=== PATIENT | female | born 1940 | race Caucasian/White ===

== ENCOUNTER 2017-01-31 19:19 | Emergency (ER) | payer MEDICARE ==
--- NOTE | ~2017-01-31 | CT55 ---
[facility] A Service of [facility] RADIOLOGY TEXT RESULTS PATIENT: TAD SINGER LOCATION: [facility] : 39 UNIT #: [id number] AGE: [address]: Yary Julio MD SEX: F ORDER DR: [id number] [facility] [address] [place], [place] [address] [id number] E MR#: [id number] Acc #: [id number] NAME: TAD SINGER : 1940 SEX: F STUDY DATE/TIME: 01/31/2017 23:25 UNIT: [facility] ROOM: STUDY DESCRIPTION: CT Chest W Con Attending Physician: Yary Julio M.D. Ordering Physician: Yary Julio M.D. Primary Care Physician: Mathew Aguilar M.D. MEDICAL IMAGING REPORT This report is preliminary unless electronic signature is present EXAM CT chest INDICATIONS Chest pain for 3 days. Generalized abdominal pain. Back pain. COMPARISON Chest radiograph dated 01/31/2017. FINDINGS This CT exam was performed with one or more of the following radiation dose reduction techniques: Automatic exposure control, adjustment of mA and/or kV according to patient size, and iterative reconstruction. There is some mild tree-in-bud nodularity and ground-glass attenuation within the right upper lobe. This is compatible with an acute pneumonia. No focal consolidation. There is some linear atelectasis in the medial right middle lobe and the lingula. There is background emphysema. The central airways are patent. There is moderate atherosclerotic disease within the abdominal aorta. The main pulmonary artery is dilated measuring up to 3 cm. This suggests a component of pulmonary arterial hypertension. Patient has had prior tricuspid, mitral, and aortic valve replacement. No pathologically enlarged mediastinal or hilar lymph nodes. No pericardial or pleural effusion. Please refer to the separately dictated report for details on the abdomen. IMPRESSION 1. Development of some mild tree-in-bud nodularity within the right upper lobe consistent with an acute pneumonia. No dense [facility] A Service of [facility] RADIOLOGY TEXT RESULTS PATIENT: TAD SINGER LOCATION: [facility] : 39 UNIT #: [id number] AGE: [address]: Yary Julio MD SEX: F ORDER DR: consolidation. 2. Emphysema. 3. Elevated left hemidiaphragm. Dictated by... Sebastián Lopez M.D. THIS IS AN ELECTRONICALLY VERIFIED REPORT Sebastián Lopez M.D. at 02/01/2017 4:03 AM C/elvira TD: 02/01/2017 03:31 JOB #: [id number] MEDICAL IMAGING REPORT Page 1 of 1 COPY
--- NOTE | ~2017-01-31 | CR72 ---
[facility] A Service of [facility] RADIOLOGY TEXT RESULTS PATIENT: TAD SINGER LOCATION: [facility] : 39 UNIT #: [id number] AGE: [address]: Yary Julio MD SEX: F ORDER DR: [id number] [facility] [address] [place], [place] [address] [id number] E MR#: [id number] Acc #: [id number] NAME: TAD SINGER : 1940 SEX: F STUDY DATE/TIME: 01/31/2017 20:42 UNIT: [facility] ROOM: STUDY DESCRIPTION: CR Chest Single View Portable Attending Physician: Yary Julio M.D. Ordering Physician: Ed Doctor [id number] [facility] Primary Care Physician: Mathew Aguilar M.D. MEDICAL IMAGING REPORT This report is preliminary unless electronic signature is present EXAM Single view chest INDICATIONS Chest pain, short and shortness of air for 1 day. FINDINGS Single portable AP view of the chest compared to 09/14/2016. Heart mediastinal contours are unchanged. The patient has had three heart valve replacements. There are chronic interstitial opacities in both lungs as well as background emphysema. The left hemidiaphragm is elevated. IMPRESSION No acute findings or significant interval change. Dictated by... Sebastián Lopez M.D. THIS IS AN ELECTRONICALLY VERIFIED REPORT Sebastián Lopez M.D. at 02/01/2017 2:24 AM REBECA/tavo TD: 02/01/2017 01:04 JOB #: [id number] MEDICAL IMAGING REPORT Page 1 of 1 COPY
--- NOTE | ~2017-01-31 | EKG ---
PATIENT: TAD SINGER UNIT #: [id number] Ventricular Rate: 86 BPM Atrial Rate: 86 BPM P-R Interval: 158 ms QRS Duration: 86 ms Q-T Interval: 386 ms QTC Calculation(Bezet): 461 ms P [place]: 52 degrees Calculated R [place]: 78 degrees Calculated T [place]: 66 degrees Diagnosis Line: Sinus rhythm with Premature atrial complexes Diagnosis Line: Poor data quality Diagnosis Line: When compared with ECG of 17-APR-2016 20:15, Diagnosis Line: No significant change was found Diagnosis Line: Confirmed by EWA GILL MD ([id number]) on Diagnosis Line: 02/02/2017 1:13:50 PM INTERPRETING MD: SHON
--- NOTE | ~2017-01-31 | CT2 ---
[facility] A Service of [facility] RADIOLOGY TEXT RESULTS PATIENT: TAD SINGER LOCATION: [facility] : 39 UNIT #: [id number] AGE: [address]: Yary Julio MD SEX: F ORDER DR: [id number] [facility] [address] [place], [place] [address] [id number] E MR#: [id number] Acc #: [id number] NAME: TAD SINGRE : 1940 SEX: F STUDY DATE/TIME: 01/31/2017 23:25 UNIT: [facility] ROOM: STUDY DESCRIPTION: CT Abd and Pelv W Cont Attending Physician: Yary Julio M.D. Ordering Physician: Yary Julio M.D. Primary Care Physician: Mathew Aguilar M.D. MEDICAL IMAGING REPORT This report is preliminary unless electronic signature is present EXAM CT abdomen and pelvis INDICATIONS Generalized abdominal pain for 3 days. Back pain. TECHNIQUE CT of the abdomen and pelvis utilizing 100 mL Isovue-370 IV contrast. Coronal and sagittal reconstructions were obtained. This CT exam was performed with one or more of the following radiation dose reduction techniques: Automatic exposure control, adjustment of mA and/or kV according to patient size, and iterative reconstruction. COMPARISON CT abdomen and pelvis dated 05/26/2016. FINDINGS The solid abdominal organs are within normal limits. There is diffuse atherosclerotic disease within the abdominal aorta. 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 There is focal stenosis of both renal arteries. There is ectasia of the infrarenal abdominal aorta measuring up to 2.9 cm. No small bowel obstruction. The appendix is normal. PELVIS: No pelvic mass. Bladder is unremarkable. No enlarged pelvic or inguinal lymph nodes. No acute osseous abnormalities. IMPRESSION 1. No acute findings in the abdomen or pelvis. [facility] A Service of [facility] RADIOLOGY TEXT RESULTS PATIENT: TAD SINGER LOCATION: [facility] : 39 UNIT #: [id number] AGE: [address]: Yary Julio MD SEX: F ORDER DR: 2. Diffuse atherosclerotic disease of the abdominal aorta. 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 3. Ectasia of the infrarenal abdominal aorta measuring 2.9 cm. Dictated by... Sebastián Lopez M.D. THIS IS AN ELECTRONICALLY VERIFIED REPORT Sebastián Lopez M.D. at 02/01/2017 4:02 AM RPC/elvira TD: 02/01/2017 03:36 JOB #: [id number] MEDICAL IMAGING REPORT Page 1 of 1 COPY
[~2017-01-31 19:19] MED LIST: ACETAMINOPHEN PO; ALBUTEROL17 GM INH; ALLERGY10 MG PO; ALPRAZOLAM PO; AMIODARONE HCL100 MG PO; AMIODARONE HCL400 MG PO; AMIODARONE PO; ASPIRIN PO; ASPIRIN81 M1 PO; ASPIRIN81 MG PO; ATROVENT NEB; BAYER ASPIRIN325 M1 PO; CARVEDILOL25 MG PO; CELEBREX PO; CIPRO PO; CO Q-1010 MG PO; COATED ASPIRIN325 M1 PO; COLACE PO; CORDARONE200 M1 PO; COUMADIN PO; COUMADIN3 MG PO; COUMADIN4 MG PO; COUMADIN5 MG PO; COUMADIN7.5 MG PO; DARVOCET-N 1001 TA1 PO; DARVOCET-N 1001 TAB; DOXYCYCLINE150 MG PO; ENSURE PLUS237 ML PO; ENSURE237 ML PO; FISH OIL 1,0001 CAP PO; FUROSEMIDE40 MG PO; K-DUR20 ME1 DOB; K-DUR20 ME1 PO; K-DUR20 ME2 PO; KLOR-CON PO; LASIX PO; LASIX20 MG PO; LEVOXYL50 MC1 PO; LIPITOR PO; LIPITOR20 MG PO; LISINOPRIL PO; LISINOPRIL20 MG PO; LO-DOSE ASPIRIN81 M1 PO; LOPRESSOR PO; LORTAB 10-5001 EACH PO; LORTAB 7.5-5001 TAB PO; MACROBID100 MG DOB; MACROBID100 MG PO; MAXZIDE 75/50 T1 TAB; METOPROLOL SUCC25 MG PO; METOPROLOL SUCC50 MG PO; METOPROLOL TAR25 MG PO; METOPROLOL TART25 MG PO; MILK OF MAGNESIA PO; MIRALAX17 GM PO; MONODOX100 MG PO; MULTI-DAY VITAM1 TAB PO; NEURONTIN300 MG PO; NITROFURANTOIN100 M3 PO; NORVASC10 MG PO; PERSANTINE PO; PRENATAL VITAMI1 TA4 PO; PYRIDIUM100 MG PO; QVAR7.3 GM INH; SYNTHROID0.05 MG PO; VICODIN 5-3001 EACH PO; VICODIN PO; XANAX1 MG PO; XOPENEX1.25 MG/3 IH; ZOVIRAX800 MG PO
[2017-01-31 19:55] LABS: BASOPHIL# 0.1 X10e3 (0-0.3); BASOPHIL% 0.6 % (0-2.5); EOSINOPHIL# 0.1 X10e3 (0-0.7); EOSINOPHIL% 0.8 % (0.0-7.0); HEMATOCRIT 38.5 % (35.0-45.0); HEMOGLOBIN 12.4 gm/dL (12.0-16.0); LYMPHOCYTE# 1.2 X10e3 (1.0-3.5); LYMPHOCYTE% 10.3 % (17.0-45.0); MEAN CELL VOLUME 94.1 FL (83-96); MEAN CORPUSCULAR HEMOGLOBIN 30.3 PG (28-34); MEAN CORPUSCULAR HGB CONC 32.2 g/dL (30-36); MONOCYTE% 8.9 % (3.0-12.0); NEUTROPHIL# 8.9 X10e3 (1.5-7.1); NEUTROPHIL% 79.4 % (40-75); PLATELET COUNT 459 X10e3 (140-420); RED BLOOD COUNT 4.09 X10e (3.90-5.30); WHITE BLOOD COUNT 11.2 X10e3 (4.0-10.5)
[2017-01-31 19:57] LABS: DIFF IND NO
[2017-01-31 20:26] LABS: ALBUMIN SERUM 3.9 g/dL (3.5-5.0); BILIRUBIN, DIRECT 0.1 mg/dL (0.0-0.2); BILIRUBIN,INDIRECT 0.6 mg/dL (0.0-0.9); BILIRUBIN,TOTAL 0.7 mg/dL (0.2-2.0); GLOM FILT RATE Estimated 54.3 mL/min (>60); PROTEIN TOTAL SERUM 7.1 g/dL (6.0-8.3)
[2017-01-31 20:59] LABS: URINE SOURCE CLEAN CATCH
[2017-01-31 21:09] LABS: POC - CKMB <1.0 ng/mL (0.0-7.9); POC - TROPONIN <0.05 ng/mL (<=0.05)
[2017-01-31 21:10] LABS: URINE APPEARANCE CLEAR; URINE BILIRUBIN NEG (NEG); URINE BLOOD NEG (NEG); URINE COLOR YELLOW; URINE GLUCOSE NEG (NEG); URINE KETONE NEG (NEG); URINE LEUKOCYTE ESTERASE 2+ (NEG); URINE NITRATE NEG (NEG); URINE PROTEIN NEG (NEG); URINE SPECIFIC GRAVITY 1.013 (1.003-1.035); URINE UROBILINOGEN 0.2 MG/DL (NEG)
[2017-01-31] MEDS ORDERED: AMIODARONE HCL100 MG PO (21:11)
[2017-01-31] MEDS ORDERED: POTASSIUM CL 225 ME1 (21:11)
[2017-01-31 21:12] LABS: CULTURE INDICATED? YES; U HYALINE CASTS AUWI 0-2 /[LPF]; URBCS1 AUWI 0-2 /[HPF] (0-2); URINE BACTERIA AUWI NEG (NEGATIVE); URINE SQUAMOUS EPITHELIAL CELL NONE SEEN /[HPF]; UWBCS1 AUWI 50-100 (0-5)
[2017-01-31] MEDS ORDERED: LASIX20 MG PO (21:12)
[2017-01-31] MEDS ORDERED: TIROSINT50 MCG PO (21:12)
[2017-01-31] MEDS ORDERED: METOPROLOL TART25 MG PO (21:13)
[2017-01-31] MEDS ORDERED: HYDRALAZINE HCL25 MG PO (21:13)
[2017-01-31] MEDS ORDERED: COUMADIN3 MG PO (21:14)
[2017-01-31] MEDS ORDERED: LO-DOSE ASPIRIN81 M1 PO (21:14)
[2017-01-31] MEDS ORDERED: ALPRAZOLAM ODT1 MG PO (21:15)
[2017-01-31 21:23] LABS: POC - TROPONIN <0.05 ng/mL (<=0.05)
[2017-01-31 21:40] LABS: INR 1.2
[2017-01-31 21:41] LABS: PROTHROMBIN TIME (PATIENT) 13.1 SECONDS (9.6-11.5)
== END 2017-02-01 01:16 | disposition home or self-care (01) ==
LOC: CED 19:19
PROVIDERS: Emergency Medicine
DX: J18.9 Pneumonia, unspecified organism (principal); I11.0 Hypertensive heart disease with heart failure; I50.9 Heart failure, unspecified; Z79.82 Long term (current) use of aspirin; Z79.899 Other long term (current) drug therapy; Z79.01 Long term (current) use of anticoagulants; Z88.0 Allergy status to penicillin; Z88.2 Allergy status to sulfonamides; Z88.5 Allergy status to narcotic agent; Z88.7 Allergy status to serum and vaccine; Z91.040 Latex allergy status
CPT/HCPCS: 36415; 71010; 71260; 74177; 80048; 80076; 81003; 82553; 84443; 84484; 85025; 85610; 87086; 87088; 93005; 96360; 96361; 99284; Q9967

== ENCOUNTER 2017-02-17 14:17 | Emergency (ER) | payer MEDICARE ==
--- NOTE | ~2017-02-17 | EKG ---
PATIENT: TAD SINGER UNIT #: [id number] Ventricular Rate: 70 BPM Atrial Rate: 70 BPM P-R Interval: 168 ms QRS Duration: 88 ms Q-T Interval: 444 ms QTC Calculation(Bezet): 479 ms P [place]: 87 degrees Calculated R [place]: 44 degrees Calculated T [place]: 28 degrees Diagnosis Line: Normal sinus rhythm Diagnosis Line: Normal ECG Diagnosis Line: When compared with ECG of 31-JAN-2017 19:27, Diagnosis Line: Premature atrial complexes are no longer Present Diagnosis Line: Confirmed by UMAIR GAN MD ([id number]) on Diagnosis Line: 03/01/2017 8:26:25 AM INTERPRETING MD: MALIK JOHNSON
--- NOTE | ~2017-02-17 | CT57 ---
[facility] A Service of [facility] RADIOLOGY TEXT RESULTS PATIENT: TAD SINGER LOCATION: [facility] : 39 UNIT #: [id number] AGE: [address]: Babar Pederson MD SEX: F ORDER DR: [id number] [address] [address] [id number] E MR#: [id number] Acc #: [id number] NAME: TAD SINGER : 1940 SEX: F STUDY DATE/TIME: 02/17/2017 15:44 UNIT: [facility] ROOM: STUDY DESCRIPTION: CT Chest Wo Cont Attending Physician: Babar Pederson M.D. Ordering Physician: Babar Pederson M.D. Primary Care Physician: Mathew Aguilar M.D. MEDICAL IMAGING REPORT This report is preliminary unless electronic signature is present. EXAM CT chest without contrast, 02/17/2017 at 15:44. HISTORY 76-year-old female with shortness of breath for 2 days. History of bladder and skin cancer. Atrial fibrillation. Mitral valve replacement. COMPARISON CT chest 01/31/2017. AP portable chest 02/17/2017 at 14:37. PROCEDURE 5-mm noncontrast axial images through the chest. Sagittal and coronal reformatted images were obtained. This CT exam was performed with one or more of the following radiation dose reduction techniques: automatic exposure control, adjustment of mA and/or kV according to patient size, and iterative reconstruction. FINDINGS Emphysematous changes are present. There are band-like atelectatic changes within the lingular segment left upper lobe and left lower lobe, potentially related to chronic asymmetric elevation of the left hemidiaphragm. There is linear scarring in the medial right middle lobe, also unchanged. No new airspace disease is seen. Emphysema. No pericardial effusion or pleural effusion. Ectasia of the ascending thoracic aorta, 3.8 cm, and borderline aneurysmal dilation of the mid descending thoracic aorta, 3.1 cm, unchanged. Features of aortic, mitral and tricuspid valve replacement. No pathologic adenopathy. No pericardial effusion, pleural effusion or pneumothorax. Included portions of the upper abdominal organs appear unremarkable. No acute osseous abnormalities are identified. IMPRESSION [facility] A Service of [facility] RADIOLOGY TEXT RESULTS PATIENT: TAD SINGER LOCATION: [facility] : 39 UNIT #: [id number] AGE: [address]: Babar Pederson MD SEX: F ORDER DR: 1. No acute chest findings. Chronic linear scarring or atelectasis in the left lower lobe, lingula, and medial right middle lobe. 2. Moderate emphysema. 3. Mild cardiomegaly with aortic, tricuspid, and mitral valve replacement. Stable ascending aortic ectasia and borderline aneurysmal dilation of the descending thoracic aorta. Dictated by... Anne Olivia M.D. THIS IS AN ELECTRONICALLY VERIFIED REPORT Anne Olivia M.D. at 02/20/2017 9:29 AM German TD: 02/17/2017 19:16 JOB #: [id number] MEDICAL IMAGING REPORT Page 1 of 1
--- NOTE | ~2017-02-17 | CR72 ---
[facility] A Service of [facility] RADIOLOGY TEXT RESULTS PATIENT: TAD SINGER LOCATION: [facility] : 39 UNIT #: [id number] AGE: [address]: Babar Pederson MD SEX: F ORDER DR: [id number] [address] [address] [id number] E MR#: [id number] Acc #: [id number] NAME: TAD SINGER : 1940 SEX: F STUDY DATE/TIME: 02/17/2017 14:37 UNIT: [facility] ROOM: STUDY DESCRIPTION: CR Chest Single View Portable Attending Physician: Babar Pederson M.D. Ordering Physician: Babar Pederson M.D. Primary Care Physician: Mathew Aguilar M.D. MEDICAL IMAGING REPORT This report is preliminary unless electronic signature is present. EXAM AP portable chest 02/17/2017. HISTORY Shortness breath for 2 days. COMPARISON AP portable chest and CT chest, 01/31/2017. FINDINGS Stable asymmetric elevation of the left hemidiaphragm with passive left basilar atelectasis. Emphysematous changes. No definite new or acute airspace disease is identified. Heart size is enlarged, but stable, with signs of median sternotomy and valve replacement. No pleural effusion or pneumothorax. IMPRESSION 1. No acute chest findings or significant change since 01/31/2017. 2. Passive left basilar atelectasis secondary to left hemidiaphragm elevation. 3. Stable cardiomegaly with valve replacement. 4. Emphysematous changes. Dictated by... Anne Olivia M.D. THIS IS AN ELECTRONICALLY VERIFIED REPORT Anne Olivia M.D. at 02/20/2017 9:29 AM LETY/raj [facility] A Service of [facility] RADIOLOGY TEXT RESULTS PATIENT: TAD SINGER LOCATION: [facility] : 39 UNIT #: [id number] AGE: [address]: Babar Pederson MD SEX: F ORDER DR: TD: 02/17/2017 16:57 JOB #: [id number] MEDICAL IMAGING REPORT Page 1 of 1
[~2017-02-17 14:17] MED LIST changes: +ALPRAZOLAM ODT1 MG PO; +HYDRALAZINE HCL25 MG PO; +POTASSIUM CL 225 ME1; +TIROSINT50 MCG PO
[2017-02-17 14:54] LABS: BASOPHIL# 0.1 X10e3 (0-0.3); BASOPHIL% 1.2 % (0-2.5); EOSINOPHIL# 0.1 X10e3 (0-0.7); EOSINOPHIL% 1.6 % (0.0-7.0); HEMOGLOBIN 13.2 gm/dL (12.0-16.0); LYMPHOCYTE# 1.2 X10e3 (1.0-3.5); LYMPHOCYTE% 13.8 % (17.0-45.0); MEAN CELL VOLUME 93.8 FL (83-96); MEAN CORPUSCULAR HEMOGLOBIN 30.8 PG (28-34); MEAN CORPUSCULAR HGB CONC 32.9 g/dL (30-36); MEAN PLATELET VOLUME 9.4 FL (6.5-11.5); MONOCYTE# 0.7 X10e3 (0-1.0); NEUTROPHIL# 6.7 X10e3 (1.5-7.1); NEUTROPHIL% 75.4 % (40-75); PLATELET COUNT 504 X10e3 (140-420); RED BLOOD COUNT 4.27 X10e (3.90-5.30); RED CELL DISTRIBUTION WIDTH 15.5 % (11.0-15.5); WHITE BLOOD COUNT 8.9 X10e3 (4.0-10.5)
[2017-02-17 14:55] LABS: DIFF IND NO
[2017-02-17 15:03] LABS: POC - CKMB 2.1 ng/mL (0.0-7.9); POC - TROPONIN <0.05 ng/mL (<=0.05)
[2017-02-17 15:09] LABS: INR 2.1; PROTHROMBIN TIME (PATIENT) 23.4 SECONDS (9.5-12.4)
[2017-02-17 15:17] LABS: PARTIAL THROMBOPLASTIN TIME 36.2 SECONDS (25.6-38.1)
[2017-02-17 15:18] LABS: ALBUMIN SERUM 4.1 g/dL (3.5-5.0); ALKALINE PHOSPHATASE 69 U/L (32-92); ALT (SGPT) 12 U/L (10-40); AST (SGOT) 21 U/L (10-42); BILIRUBIN, DIRECT <0.1 mg/dL (0.0-0.2); BILIRUBIN,INDIRECT 0.1 mg/dL (0.0-0.9); BILIRUBIN,TOTAL 0.2 mg/dL (0.2-2.0); BLOOD UREA NITROGEN 16 mg/dL (9-23); BUN/CREATININE RATIO 17.77; CALCIUM SERUM 8.8 mg/dL (8.4-10.2); CARBON DIOXIDE 26 mmol/L (22-31); CHLORIDE 105 mmol/L (100-111); CREATININE SERUM 0.9 mg/dL (0.6-1.4); GLOM FILT RATE Estimated 61.7 mL/min (>60); GLUCOSE FASTING 103 mg/dL (70-110); POTASSIUM 4.2 mmol/L (3.5-5.1); PROTEIN TOTAL SERUM 7.4 g/dL (6.0-8.3); SODIUM 139 mmol/L (135-145)
[2017-02-17 16:31] LABS: POC - CKMB 1.2 ng/mL (0.0-7.9); POC - TROPONIN <0.05 ng/mL (<=0.05)
== END 2017-02-17 17:29 | disposition home or self-care (01) ==
LOC: SED 14:17
PROVIDERS: Emergency Medicine
DX: I10 Essential (primary) hypertension (principal); I50.9 Heart failure, unspecified; J44.9 Chronic obstructive pulmonary disease, unspecified; I48.91 Unspecified atrial fibrillation; Z88.0 Allergy status to penicillin; Z88.2 Allergy status to sulfonamides; Z79.82 Long term (current) use of aspirin; Z79.899 Other long term (current) drug therapy
CPT/HCPCS: 36415; 71010; 71250; 80048; 80076; 82553; 83880; 84484; 85025; 85610; 85730; 93005; 94640; 96374; 96375; 99284; J1940; J2930

== ENCOUNTER 2017-03-28 09:18 | Observation (INO) | payer MEDICARE ==
[~2017-03-28] VITALS: Ht 157.5 cm; Wt 48.0 kg
--- NOTE | ~2017-03-28 | MR18 ---
[facility] A Service of [facility] RADIOLOGY TEXT RESULTS PATIENT: TAD SINGER LOCATION: [facility] : 39 UNIT #: [id number] AGE: [address]: Ivana Ashraf MD SEX: F ORDER DR: [id number] [facility] [address] [place], [place] [address] [id number] I MR#: [id number] Acc #: [id number] NAME: TAD SINGER : 1940 SEX: F STUDY DATE/TIME: 03/28/2017 18:01 [facility] STUDY DESCRIPTION: MR Brain Wo Contrast Attending Physician: Jennifer Webster M.D. Ordering Physician: Jennifer Webster M.D. Primary Care Physician: Mathew Aguilar M.D. MRI CENTER REPORT This report is preliminary unless electronic signature is present. EXAM MRI brain without contrast HISTORY Acute onset visual loss, left side, today. FINDINGS MRI brain was performed without contrast. There is no recent ischemia or infarct. Wtls-tl-vfmptkva chronic ischemic changes in the periventricular white matter bilaterally. Mild generalized cerebral cortical atrophy and compensatory generalized ventricular dilatation. No midline shift. No focal atrophy. No extraaxial fluid collection. 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 Minimal chronic ischemic changes in the esdras. IMPRESSION 1. No acute findings. 2. No recent ischemia or infarct. 3. Hmcs-jc-lzsxgapn chronic ischemic changes in the deep white matter bilaterally and mild chronic ischemic changes in the esdras. 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 Dictated by... Vito Parry M.D. THIS IS AN ELECTRONICALLY VERIFIED REPORT Vito Parry M.D. at 03/29/2017 11:32 PM MARISELA/aleksandr TD: 03/29/2017 06:25 JOB #: [id number] [facility] A Service of [facility] RADIOLOGY TEXT RESULTS PATIENT: TAD SINGER LOCATION: [facility] [address] : 39 UNIT #: [id number] AGE: [address]: Ivana Ashraf MD SEX: F ORDER DR: MRI CENTER REPORT Page 1 of 1 COPY
--- NOTE | ~2017-03-28 | CT23 ---
[facility] A Service of [facility] RADIOLOGY TEXT RESULTS PATIENT: TAD SINGER LOCATION: [facility] : 39 UNIT #: [id number] AGE: [address]: Babar Pederson MD SEX: F ORDER DR: [id number] [facility] [address] [place], [place] [address] [id number] E MR#: [id number] Acc #: [id number] NAME: TAD SINGER : 1940 SEX: F STUDY DATE/TIME: 03/28/2017 10:25 UNIT: [facility] ROOM: STUDY DESCRIPTION: CT Angio Neck Attending Physician: Babar Pederson M.D. Ordering Physician: Babar Pederson M.D. Primary Care Physician: Mathew Aguilar M.D. MEDICAL IMAGING REPORT This report is preliminary unless electronic signature is present EXAM CT-A neck, 03/28/[address]-A head for results. STAT * RESULT Dictated by... Munira Jacob M.D. THIS IS AN ELECTRONICALLY VERIFIED REPORT Munira Jacob M.D. at 03/28/2017 1:02 PM HE/raj TD: 03/28/2017 11:37 JOB #: [id number] MEDICAL IMAGING REPORT Page 1 of 1 COPY
--- NOTE | ~2017-03-28 | CT17 ---
[facility] A Service of [facility] RADIOLOGY TEXT RESULTS PATIENT: TAD SINGER LOCATION: [facility] 337-01 : 39 UNIT #: [id number] AGE: [address]: Ivana Ashraf MD SEX: F ORDER DR: [id number] [facility] [address] [place], [place] [address] [id number] E MR#: [id number] Acc #: [id number] NAME: TAD SINGER : 1940 SEX: F STUDY DATE/TIME: 03/28/2017 10:25 UNIT: [facility] ROOM: STUDY DESCRIPTION: CT Angio Head Attending Physician: Babar Pederson M.D. Ordering Physician: Babar Pederson M.D. Primary Care Physician: Mathew Aguilar M.D. MEDICAL IMAGING REPORT This report is preliminary unless electronic signature is present ADDENDUM There is heterogeneous enlargement of the thyroid gland asymmetrical worse on the right. This is nonspecific and should be characterized with a non-emergent thyroid ultrasound when the patient is able. There are also degenerative changes in the cervical spine. JOB#: [id number] Dictated by... Munira Jacob M.D. THIS IS AN ELECTRONICALLY VERIFIED REPORT Munira Jacob M.D. at 03/29/2017 7:26 AM SAC/to TD: 03/28/2017 20:17 JOB #: [id number] MEDICAL IMAGING REPORT Page 1 of 1 COPY
--- NOTE | ~2017-03-28 | CT71 ---
[facility] A Service of [facility] RADIOLOGY TEXT RESULTS PATIENT: TAD SINGER LOCATION: [facility] 337-01 : 39 UNIT #: [id number] AGE: [address]: Ivana Ashraf MD SEX: F ORDER DR: [id number] [facility] [address] [place], [place] [address] [id number] I MR#: [id number] Acc #: [id number] NAME: TAD SINGER : 1940 SEX: F STUDY DATE/TIME: 03/28/2017 10:17 UNIT: [facility] ROOM: [id number] STUDY DESCRIPTION: CT Head Wo Contrast Attending Physician: Jennifer Webster M.D. Ordering Physician: Babar Pederson M.D. Primary Care Physician: Mathew Aguilar M.D. MEDICAL IMAGING REPORT This report is preliminary unless electronic signature is present REVISED REPORT EXAM CT of the head was obtained without contrast in the axial plane, dated 03/28/2017. COMPARISON CT head without contrast dated 10/04/2014. HISTORY Sudden loss of vision in the left eye for 13 minutes before arrival to the hospital. Vision started returning after that. History of bladder and skin carcinoma. TECHNIQUE This CT exam was performed with one or more of the following radiation dose reduction techniques: Automatically exposure control, adjustment of mA and / kV according to patient size, and iterative reconstruction. FINDINGS CT of the head was obtained without contrast in the axial plane. Mild atherosclerotic arteriovascular calcifications are in bilateral ICA. No acute intracranial hemorrhage, space-occupying mass or hydrocephalus is seen. Mild hypodensity is noted in the periventricular white matter, region of the anterior limb of the right internal capsule. The bones, mastoid air cells, and paranasal sinuses are unremarkable. Orbits and the ocular structures do not demonstrate any significant abnormality. Evidence of bilateral cataract surgery. IMPRESSION 1. Scattered hypodensities are noted in the periventricular white matter [facility] A Service [facility] RADIOLOGY TEXT RESULTS PATIENT: TAD SINGER LOCATION: [facility] 337-01 : 39 UNIT #: [id number] AGE: [address]: Ivana Ashraf MD SEX: F ORDER DR: and in the region of the anterior limb of the right internal capsule and the adjacent basal ganglia. They are nonspecific and are relatively stable, likely related to mild chronic microvascular ischemic change, based on age and statistics. Nonspecific. 2. No acute intracranial hemorrhage, space-occupying large mass, hydrocephalus, or cortical based large acute stroke. MRI is more sensitive and specific in evaluation of early acute stroke. Dictated by... Elieser Patel M.D. THIS IS AN ELECTRONICALLY VERIFIED REPORT Elieser Patel M.D. at 05/07/2017 9:12 PM CPR/raj TD: 03/28/2017 17:37 JOB #: [id number] MEDICAL IMAGING REPORT Page 1 of 1 COPY
--- NOTE | ~2017-03-28 | HP ---
Unit #: [id number] #: [id number] Patient: TAD SINGER [id number] [facility] [address], [place] [address] [id number] MR#: [id number] NAME: TAD SINGER ROOM: 67561 Age: 76 Sex: F Admission Date: 03/28/2017 : 1940 Attending Physician: Jennifer Webster M.D. Primary Care Physician: Mathew Aguilar M.D. HISTORY AND PHYSICAL CHIEF COMPLAINT Sudden loss of vision in left eye. HISTORY OF PRESENT ILLNESS The patient is a 76-year-old female with past medical history of atrial fibrillation, valvular heart disease, chronic anticoagulation, pulmonary hypertension, COPD, abdominal aortic aneurysm, hypertension, hyperlipidemia, bladder cancer, hypothyroidism and pelvic fracture who presented to the emergency department for evaluation of the above. The patient states that she was in her usual state of health until the morning of admission around 7:30 when she experienced the sudden loss of vision in her left eye. She states that it was "like a shade pulled." She states that the shade was pulled from top to bottom. She states that it lasted about 20 minutes. Her vision is currently at baseline. She does wear glasses. She denies ever having a similar problem. She denies any headache. No numbness or tingling. No weakness. In the emergency department a CT of the head was done and showed no acute abnormality. Laboratory notable for INR of 1.9. She was given 500 mL of normal saline, as well as 1 mg/kg subcu of Lovenox. She is being admitted to [facility] for evaluation and further treatment. PAST MEDICAL HISTORY 1. Admission to [facility] April 14, 2013 for acute respiratory failure and pneumonia. 2. Pelvic fracture. 3. Valvular heart disease status post mechanical valve replacement, followed by Dr. Nunes. 4. Atrial fibrillation. 5. Chronic anticoagulation with Coumadin. 6. COPD. 7. Pulmonary hypertension. 8. Abdominal aortic aneurysm. 9. Hypertension. 10. Hyperlipidemia. 11. Hypothyroidism. 12. Bladder cancer status post transurethral resection of bladder tumor, followed by Dr. Whitmore. PAST SURGICAL HISTORY 1. Mechanical valve replacement. 2. Cystoscopy. 3. Transurethral resection of bladder tumor. Unit #: [id number] #: [id number] Patient: TAD SINGER 4. D and C. 5. Hysterectomy. 6. Cataract surgery. SOCIAL HISTORY The patient lives with her . There is no alcohol use. She continues to smoke 1/2 pack of cigarettes daily. She walks without assistance. FAMILY HISTORY Notable for heart disease. ALLERGIES Penicillin, sulfa, morphine, tetanus immune globulin, latex. HOME MEDICATIONS 1. Potassium 10 mEq daily. 2. Amiodarone 200 mg daily. 3. Levothyroxine 50 mcg daily. 4. Lasix 20 mg daily. 5. Lopressor 50 mg b.i.d. 6. Hydralazine 25 mg b.i.d. 7. Warfarin 3 mg at bedtime. 8. Aspirin 81 mg daily. 9. Alprazolam 1 mg at bedtime. REVIEW OF SYSTEMS A complete review of systems is negative except as indicated in the HPI. The patient states that her INR was last checked about a week ago, and no changes were made to her medication. She states that she has been taking her medications as prescribed. PHYSICAL EXAMINATION VITAL SIGNS: Temperature is 97.8, pulse 76, respirations 18, blood pressure 139/63, oxygen saturation 99% on room air. GENERAL: The patient is a female who is awake and alert in no acute distress. HEENT: The head is atraumatic. Mucous membranes are moist. NECK: Supple. Trachea is midline. CARDIOVASCULAR: Regular rate and rhythm. RESPIRATORY: Lungs are clear to auscultation bilaterally with no increased work of breathing. ABDOMEN: Soft, nontender with bowel sounds present in all 4 quadrants. EXTREMITIES: Extremities are nontender with no pedal edema. NEUROLOGIC: The patient is awake and alert. She follows commands. PSYCHIATRIC: Mood and affect are normal. The patient is cooperative. SKIN: Skin of examined areas is warm and dry. DIAGNOSTIC TESTS CARDIOVASCULAR: EKG shows normal sinus rhythm with a rate of 70 beats per minute. IMAGING: CT of the head shows nothing acute. CT angiogram of the head and neck shows 52% stenosis of the proximal right internal carotid artery, 33% stenosis of proximal left internal carotid artery. 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 Unit #: [id number] #: [id number] Patient: TAD SINGER LABORATORY: INR is 1.9. Comprehensive metabolic panel notable for BUN and creatinine of 16 and 1.2 respectively. Complete blood count is notable for platelets of 441. Troponin is less than 0.05. ASSESSMENT 1. The patient is a 76-year-old female with transient monocular visual loss (amaurosis fugax). The patient's INR is subtherapeutic. She received Lovenox 1 mg/kg subcu in the emergency department. 2. Atrial fibrillation. 3. History of valvular heart disease status post mechanical valve replacement. 4. Chronic anticoagulation with INR of 1.9. 5. Pulmonary hypertension. 6. COPD with continued tobacco abuse. 7. Abdominal aortic aneurysm. 8. Hypertension. 9. Hyperlipidemia. 10. History of bladder cancer status post transurethral resection of bladder tumor. 11. Hypothyroidism. 12. History of pelvic fracture. PLAN 1. Admit for observation to intermediate level. 2. Healthy heart diet if passes bedside swallow. 3. MRI of the brain without contrast for further evaluation of vision loss. 4. Neuro checks q.4 hours. 5. Stroke protocol per neurology. 6. Anticoagulation per neurology. (The received Lovenox 1 mg/kg subcu in the emergency department.) 7. Consult neurology regarding vision loss. 8. Serial cardiac enzymes. 9. Check TSH. 10. Repeat labs in the morning. 11. Additional workup and consultants based on above. 12. Regarding code status, the patient is a full code. Dictated by Jill Cruz/basilio TD: 03/28/2017 15:21 JOB #: [id number] Unit #: [id number] #: [id number] Patient: TAD SINGER HISTORY AND PHYSICAL Page 1 of 1 X Jennifer Webster MD X HISTORY AND PHYSICAL
--- NOTE | ~2017-03-28 | US37 ---
[facility] A Service of [facility] RADIOLOGY TEXT RESULTS PATIENT: TAD KENYON LOCATION: [facility] 337-01 : 39 UNIT #: [id number] AGE: [address]: Ivana Ashraf MD SEX: F ORDER DR: [id number] [facility] [address] [place], [place] [address] [id number] I MR#: [id number] Acc #: [id number] NAME: TAD KENYON : 1940 SEX: F STUDY DATE/TIME: 03/28/2017 19:52 UNIT: [id number] ROOM: [facility] STUDY DESCRIPTION: US Carotid W/Doppler Bilateral Attending Physician: Ivana Ashraf M.D. Ordering Physician: Collette Kenyon A.P.R.N. Primary Care Physician: Mathew Aguilar M.D. MEDICAL IMAGING REPORT This report is preliminary unless electronic signature is present EXAM Carotid duplex scan 03/28/2017 HISTORY Transient vision loss left eye. FINDINGS The right common carotid artery has a small amount of heterogeneous plaque. There is heterogeneous dense plaque in the right carotid bulb, which extends up into the proximal internal and external carotid arteries. Peak systolic velocity in the mid-right internal carotid artery is 120 cm/sec with an end-diastolic velocity of 35 cm/sec. The ICA:CCA ratio on the right is 3.1. Peak systolic velocity in the right external carotid artery is 70 cm/sec. The right vertebral artery is patent with antegrade flow. The left common carotid artery has a small amount of heterogeneous plaque. There is heterogeneous dense plaque in the left carotid bulb, which extends up into the proximal internal and external carotid arteries. Peak systolic velocity in the distal left internal carotid artery is 120 cm/sec with an end-diastolic velocity of 34 cm/sec. The ICA:CCA ratio on the left is 3.4. Peak systolic velocity in the left external carotid artery is 101 cm/sec. The left vertebral artery is patent with antegrade flow. IMPRESSION Small amount of plaque, but no significant stenosis (less than 50%) in the internal and external carotid arteries bilaterally. Patent vertebral arteries bilaterally with antegrade flow. Dictated by... [facility] A Service of [facility] RADIOLOGY TEXT RESULTS PATIENT: TAD KENYON LOCATION: [facility] 337-01 : 39 UNIT #: [id number] AGE: [address]: Ivana Ashraf MD SEX: F ORDER DR: Devan Farah M.D. THIS IS AN ELECTRONICALLY VERIFIED REPORT Devan Farah M.D. at 03/31/2017 7:26 AM SBS/pcl TD: 03/29/2017 19:12 JOB #: [id number] MEDICAL IMAGING REPORT Page 1 of 1 COPY
--- NOTE | ~2017-03-28 | EKG ---
PATIENT: TAD SINGER UNIT #: [id number] Ventricular Rate: 70 BPM Atrial Rate: 70 BPM P-R Interval: 184 ms QRS Duration: 86 ms Q-T Interval: 442 ms QTC Calculation(Bezet): 477 ms P [place]: 54 degrees Calculated R [place]: 45 degrees Calculated T [place]: 43 degrees Diagnosis Line: Normal sinus rhythm Diagnosis Line: Normal ECG Diagnosis Line: When compared with ECG of 17-FEB-2017 14:42, Diagnosis Line: No significant change was found Diagnosis Line: Confirmed by UMAIR GAN MD ([id number]) on Diagnosis Line: 03/29/2017 8:29:13 AM INTERPRETING MD: MALIK JOHNSON
--- NOTE | ~2017-03-28 | DS ---
Unit #: [id number] #: [id number] Patient: TAD KENYON [id number] [address] [address] [id number] I MR#: [id number] NAME: TAD KENYON ROOM: 337 Age: 76 Sex: F Admission Date: 03/28/2017 : 1940 Discharge Date: 03/29/2017 Attending Physician: Ivana Ashraf M.D. Primary Care Physician: Mathew Aguilar M.D. DISCHARGE SUMMARY PRIMARY CARE PROVIDER Dr. Aguilar. PRINCIPAL DIAGNOSES 1. Left-sided amaurosis fugax with resolution of visual abnormality. 2. Subtherapeutic INR. 3. Status post mechanical mitral valve replacement, maintained on chronic Coumadin. 4. Atrial fibrillation, currently in normal sinus with premature atrial contractions. 5. Chronic obstructive pulmonary disease. 6. Pulmonary hypertension. 7. Hypertension. 8. Hyperlipidemia. 9. Hypothyroidism. 10. Tobaccoism. 11. Abdominal aortic aneurysm. 12. History of bladder cancer, status post transurethral resection of bladder tumor. 13. Anxiety. 14. Underweight. 15. Recent mild protein malnutrition. CONSULTANTS 1. Dr. Love, Neurology. 2. Dr. Karimi, Vascular Surgery. PROCEDURES 1. CT of the head without contrast on 03/28/2017 with scattered hypodensities in the periventricular white matter in the anterior limb of the right internal capsule and adjacent basal ganglia, these are nonspecific. No acute hemorrhage mass or hydrocephalus. 2. CT angiogram of head and neck on 03/28/2017 with heterogeneous enlargement of the thyroid gland asymmetrically worse on the right. Degenerative changes of cervical spine noted. Otherwise, report is currently pending. 3. MRI of the brain without contrast on 03/28/2017 with no acute findings, no recent ischemia infarct. There is mild to moderate chronic ischemic changes in the deep white matter bilaterally and chronic ischemic changes in the esdras, small chronic infarct in the posterior right cerebellar hemisphere noted. 4. Bilateral carotid ultrasound results which are currently pending. 5. Two-dimensional echocardiogram, results of which are currently pending. Unit #: [id number] #: [id number] Patient: TAD KENYON CLINICAL HISTORY AND HOSPITAL COURSE Ms. Kenyon is a 76-year-old female, who presents to the emergency department with loss of vision in the left eye. Please refer to H and P for further details. Symptoms were most consistent with amaurosis fugax. However, by the time patient presented to the ER, her symptoms had resolved. She was found to have a subtherapeutic INR and she was placed in observation for evaluation. Dr. Love was consulted and the patient underwent a CT angiogram of the head and neck, and MRI of the brain. Official reports of CT angiogram are currently pending, but the patient reportedly had carotid disease for which Dr. Karimi is going to evaluate the patient. The patient's vision at this time is back to normal. We will continue statin therapy. Discussed risk factor modification including cessation of tobacco and the patient can be followed by Dr. Karimi as an outpatient. In regard to the patient's subtherapeutic Coumadin, she was placed on bridging Lovenox today. INR is still low at 2.0 and I am going to give her a few days of bridging Lovenox at home and she will need followup. INR done tomorrow with discontinuation of Lovenox when INR greater than or equal to 2.5. The patient's other chronic conditions are remained stable. She will be discharged home later today. Upon completion of her 2-dimensional echocardiogram and after evaluated by Dr. Karimi. DISCHARGE CONDITION Stable. DISCHARGE STATUS Discharged to home. DISCHARGE MEDICATIONS Lovenox 40 mg subcutaneously b.i.d. and stop when INR greater than equal to 2.5, amiodarone 200 mg daily, Coumadin 3 mg at bedtime, Xanax ER 1 mg at bedtime, metoprolol tartrate 50 mg b.i.d., Lasix 20 mg daily, Lipitor 40 mg at bedtime, hydralazine 25 mg p.o. b.i.d., aspirin 81 mg daily, Klor-Con 10 mEq p.o. daily, levothyroxine 50 mcg p.o. daily. DISCHARGE INSTRUCTIONS The patient was instructed to follow heart healthy, low-salt diet. She can increase her activity as tolerated. To try to refrain from any further tobacco use. FOLLOWUP The patient will follow up with Dr. Karimi as instructed. She should have a followup INR done on 03/30/2017 again with discontinuation of Lovenox when INR greater than equal to 2.5. She should follow up with Dr. Aguilar in 1 week. I will try to arrange home health if the patient is agreeable. Time spent on discharge today 32 minutes. Dictated by... Ivana Ashraf M.D. FORMERLY [facility], [facility] [place] Unit #: [id number] #: [id number] Patient: TAD EKNYON TD: 04/01/2017 00:21 JOB #: [id number] DISCHARGE SUMMARY Page 1 of 1 X Ivana Ashraf MD X DISCHARGE SUMMARY
--- NOTE | ~2017-03-28 | CO ---
Unit #: [id number] #: [id number] Patient: TAD SINGER [id number] [facility] [address] [place], [place] [address] [id number] MR#: [id number] NAME: TAD SINGER ROOM: 337 Age: 76 Sex: F Admission Date: 03/28/2017 : 1940 Attending Physician: Ivana Ashraf M.D. Primary Care Physician: Mathew Aguilar M.D. Consultation Date: 03/29/2017 CONSULTATION REPORT REASON FOR CONSULTATION Left sudden blindness. HISTORY OF PRESENT ILLNESS This is a 36-year-old female, who presents to [facility] with complaint of sudden left eye blindness "like a shade being pulled down." She was watching television at the time of the event. She denies having any other episodes of such events. She reports that the symptoms spontaneously resolved on the way to the hospital and she has had no other symptoms like this. She has a past medical history significant for atrial fibrillation as well as mechanical heart valve. She is maintained on warfarin therapy, but was subtherapeutic at the time of admission. She reports that she follows Dr. Lopez at [facility] for yearly abdominal aortic aneurysm monitoring. She smokes 1/2 pack of cigarettes daily. PAST MEDICAL HISTORY Significant for; 1. Mechanical heart valve replacement. 2. Peripheral artery disease. 3. Transient ischemic attack. 4. Amaurosis fugax. ALLERGIES Include penicillin, Sulfa, Morphine, tetanus, Latex. MEDICATIONS Potassium chloride 10 mEq daily, amiodarone 200 mg daily, Synthroid 50 mcg p.o. daily, Lasix 20 mg p.o. daily, Lopressor 50 mg b.i.d., hydralazine 25 mg p.o. b.i.d., Warfarin sodium 3 mg p.o. at bedtime, 81 mg aspirin, alprazolam 1 mg p.o. at bedtime. 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 She reports smoking 1/2 pack of cigarettes daily. She denies alcohol or drug use. FAMILY HISTORY Mother and father both . Mother with a history of transient ischemic attack. Father with suicide. REVIEW OF SYSTEMS A 12-point systems was completed and otherwise negative unless noted in history of present illness. Unit #: [id number] #: [id number] Patient: TAD SINGER PHYSICAL EXAMINATION VITAL SIGNS: Temperature 96.4, heart rate 88, blood pressure 125/72, respirations 18. GENERAL APPEARANCE: Fully awake, alert, oriented female. Good mood, appropriate affect. Answers questions appropriately. NECK: Supple, nontender. Right carotid bruits. NECK: Soft. CARDIAC: Irregular rate and rhythm. Mechanical heart valve noted. LUNGS: Clear to auscultation with diminished bilateral bases. ABDOMEN: Positive bowel sounds with a soft palpable pulsatile mass. MUSCULOSKELETAL: Moves all extremities with full range of motion. VASCULAR: Palpable radial, femoral, and dorsalis pedis pulses bilaterally. SKIN: Warm and dry. No obvious sores, lesions, nonhealing wound. NEUROLOGIC: Cranial nerves II through XII grossly intact. Normal strength and sensation bilaterally. PSYCHIATRIC: Oriented to person, place, and time. DIAGNOSTIC STUDIES IMAGING STUDIES: CTA of the head and neck completed showing right carotid stenosis measuring 52% and left carotid stenosis measuring 33%. LABORATORY RESULTS: Sodium 126, potassium 3, chloride 94, CO2 21, BUN less than 5, creatinine 0.4, glucose 119. Hemoglobin 9.5, hematocrit 28.9, WBCs 5.6, platelets 206. ASSESSMENT AND PLAN 1. Amaurosis fugax. CT of the head and neck, shows right carotid stenosis 52%, left measuring 33%. The likely cause of emboli to her eye, it is likely related to the mechanical heart valve coupled with atrial fibrillation in the setting of subtherapeutic anticoagulation. The left carotid stenosis measuring less than 33% is unlikely to be the contributing cause. We would recommend followup in 6 months with ultrasound and continue monitoring. 2. Abdominal aortic aneurysm. The patient follows Dr. Lopez at [facility] for yearly monitoring of her abdominal aortic aneurysm and would like to switch and be seen at [facility]. We will arrange for her to be seen in 6 months with ultrasound of her abdomen at that time. 3. She should remain on aspirin and Lipitor therapy at discharge. We also recommended complete smoking cessation. Dictated by... Cj Villeda APRN for Jill Mar/genevieve TD: 03/29/2017 18:34 JOB #: [id number] Unit #: [id number] #: [id number] Patient: TAD SINGER CONSULTATION REPORT Page 1 of 1 X X CONSULTATION REPORT
--- NOTE | ~2017-03-28 | CO ---
Unit #: [id number] #: [id number] Patient: TAD KENYON [id number] [facility] [address]. [place], [place] [address] [id number] MR#: [id number] NAME: TAD KENYON ROOM: 337 Age: 76 Sex: F Admission Date: 03/28/2017 : 1940 Attending Physician: Ivana Ashraf M.D. Primary Care Physician: Mathew Aguilar M.D. Consultation Date: 03/28/2017 CONSULTATION REPORT CONSULTING PHYSICIAN Dr. Jennifer Webster REASON FOR CONSULT Vision loss. PATIENT IDENTIFICATION This is a 76-year-old female evaluated in the ER, room 9, at [facility]. SOURCE OF INFORMATION Obtained from the patient as well as the medical record. 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 She states that it felt like a shade was being pulled from the top to the bottom and that everything was black. She denies any vision changes in the right eye. She denies any double vision or blurred vision before or after. She denies any headache, neck pain, fever or chills, change in weight or routine, change in medications, any focal weakness or paresthesia, loss of consciousness or loss of awareness, shortness of air, chest pain or palpitations. She denies any change in speech or swallowing. She states that she was in her usual state of health until about 7:30 on the morning of admission when symptoms occurred and, again, they resolved about 15 minutes after that. She presented to [facility] ER where a CT of the head was done that was negative for any acute intracranial findings. Her INR was 1.9. She is supposed to be at a goal of 2.5 to 3.5 given her mechanical valve. She was given 500 mL of normal saline as well as one dose of Lovenox at 1 mg/kg subcu given her subtherapeutic INR. Neurology was asked to further evaluate. She had a CT angiogram of the head and neck done that shows stenosis of just over 50% on the right carotid and stenosis of just over 30% of the left carotid. However, some of the stenosis is being reported as irregular. The patient denies any further symptoms, any exacerbating or relieving factors, and reports she is back to her baseline and wishes to be discharged as soon as she can be. Unit #: [id number] #: [id number] Patient: TAD KENYON PAST MEDICAL HISTORY 1. Admission to [facility] in 2012 for acute respiratory failure and pneumonia. 2. Tobacco use. 3. Pelvic fracture. 4. Valvular heart disease with mitral valve replacement using a mechanical prosthesis in May of 2012. She has a prior history of mechanical valve repair in 2003. 5. She has an aortic tissue valve replacement. 6. She had a cardiac catheterization in February of 2012, with angiographically normal coronary arteries and normally functioning aortic valve prosthesis. 7. Anxiety. 8. Panic attacks. 9. Abdominal aortic aneurysm. 10. COPD. 11. Hyperlipidemia. 12. Hypertension. 13. Bladder cancer, status post transurethral resection of the bladder tumor, followed by Dr. Whitmore. 14. Hypothyroidism. 15. Cystoscopy. 16. D and C. 17. Hysterectomy. 18. Cataract surgery. FAMILY HISTORY Positive for CAD. SOCIAL HISTORY The patient is and lives with her . She denies alcohol use. She was initially reported as a reformed smoker but she does continue to smoke a half pack per day of tobacco. She is independent otherwise. She denies illicit drug use. MEDICATIONS Home medications include: 1. Potassium. 2. Amiodarone. 3. Levothyroxine sodium. 4. Lasix. 5. Lopressor. 6. Hydralazine. 7. Warfarin. 8. Aspirin. 9. Alprazolam. REVIEW OF SYSTEMS Fourteen point review of systems was done. Pertinent positives are as discussed above. PHYSICAL EXAMINATION VITAL SIGNS: Temperature 97.8, pulse 76, respirations 18, blood pressure 139/63. Oxygen saturation 99%, height 5 feet 2 inches, weight 106 pounds, BMI 19. NEUROLOGICAL EXAM: The patient is awake, alert and oriented to person, place and time as well as events. No right/left confusion, no finger agnosia. No aphasia, dysarthria or apraxia. Unit #: [id number] #: [id number] Patient: TAD KENYON CRANIAL NERVE EXAM: She demonstrate full doyle of vision. Eyes are conjugate without ptosis or nystagmus. Extraocular movements are intact. Sensation of face and scalp is intact. Strength of muscles of facial expression is intact. Hearing is intact to finger rub and conversation. Tongue is midline, uvula is midline. Palate elevation is normal. Head turning and shoulder shrug was unremarkable. Neck is supple. MOTOR EXAM: She demonstrates decreased bulk, normal tone. Strength is equal, 5 out of 5, in the extremities. SENSORY EXAM: Intact GAIT AND ROMBERG: Deferred. REFLEXES: 1 out of 4. Toes are equivocal. COORDINATION: Unremarkable. DIAGNOSTIC STUDIES IMAGING: Please see above. LABORATORY: TSH 1.53, troponin less than 0.05, PT 20.7, INR 1.9, PTT 35. BMP unremarkable other than estimated GFR of 43.6. CBC unremarkable with the exception of elevated platelets at 441. Initial troponin less than 0.05. Initial glucose on arrival 88. IMPRESSION 1. Amaurosis fugax of the left eye. 2. Subtherapeutic INR of 1.9: Recommend continuing with a goal of 2.5 to 3.5 given history of mechanical mitral valve replacement. 3. History of aortic tissue valve and mechanical mitral valve. 4. Chronic obstructive pulmonary disease with ongoing tobacco use. 5. History of atrial fibrillation. 6. Chronic obstructive pulmonary disease. PLAN Will increase the patient's warfarin dose to 5 mg today and repeat an INR tomorrow. Recommend continuing to maintain INR goal of 2.5 to 3.5 and continue her home dose of aspirin. Given her CT angiogram findings, we do not suspect that this is contributory to her presentation but, given report of irregularity, will ask vascular surgery to evaluate and I discussed this with Dr. Love and Dr. Webster. Likely discharge tomorrow pending their evaluation. Request MRI of the brain and stroke workup but recommend continuing anticoagulation. Suspect subtherapeutic INR possibly as a contributing factor to the patient's presentation. We will follow along with you. We thank you very much for allowing us to assist in the care of this patient. Dictated by... Collette Kenyon A.P.R.N. for Jill Plascencia/grace TD: 03/30/2017 07:35 JOB #: [id number] Unit #: [id number] #: [id number] Patient: TAD KENYON CONSULTATION REPORT Page 1 of 1 X Collette Kenyon BARBER APPRENTICE X CONSULTATION REPORT
[2017-03-28 10:31] LABS: POC - CKMB 1.6 ng/mL (0.0-7.9); POC - TROPONIN <0.05 ng/mL (<=0.05)
[2017-03-28] MEDS ORDERED: AMIODARONE HCL200 MG PO (10:41)
[2017-03-28] MEDS ORDERED: LEVOTHYROXINE25 MC1 PO (10:41)
[2017-03-28] MEDS ORDERED: KCL PO (10:41)
[2017-03-28] MEDS ORDERED: LASIX20 MG PO (10:42)
[2017-03-28] MEDS ORDERED: LOPRESSOR PO (10:42)
[2017-03-28] MEDS ORDERED: HYDRALAZINE HCL25 MG PO (10:43)
[2017-03-28] MEDS ORDERED: WARFARIN SODIUM3 M1 PO (10:43)
[2017-03-28] MEDS ORDERED: ASPIRIN81 M2 PO (10:43)
[2017-03-28] MEDS ORDERED: ALPRAZOLAM ER1 MG PO (10:44)
[2017-03-28 10:49] LABS: BASOPHIL% 0.8 % (0-2.5); EOSINOPHIL# 0.1 X10e3 (0-0.7); EOSINOPHIL% 1.9 % (0.0-7.0); HEMATOCRIT 41.6 % (35.0-45.0); HEMOGLOBIN 13.4 gm/dL (12.0-16.0); LYMPHOCYTE# 0.9 X10e3 (1.0-3.5); LYMPHOCYTE% 14.7 % (17.0-45.0); MEAN CELL VOLUME 94.1 FL (83-96); MEAN CORPUSCULAR HEMOGLOBIN 30.4 PG (28-34); MEAN CORPUSCULAR HGB CONC 32.3 g/dL (30-36); MEAN PLATELET VOLUME 9.3 FL (6.5-11.5); MONOCYTE# 0.5 X10e3 (0-1.0); MONOCYTE% 8.8 % (3.0-12.0); NEUTROPHIL# 4.6 X10e3 (1.5-7.1); NEUTROPHIL% 73.8 % (40-75); PLATELET COUNT 441 X10e3 (140-420); RED BLOOD COUNT 4.42 X10e (3.90-5.30); RED CELL DISTRIBUTION WIDTH 14.9 % (11.0-15.5); WHITE BLOOD COUNT 6.2 X10e3 (4.0-10.5)
[2017-03-28 10:54] LABS: DIFF IND NO
[2017-03-28 10:59] LABS: INR 1.9
[2017-03-28 11:13] LABS: ALKALINE PHOSPHATASE 63 U/L (32-92); ALT (SGPT) 12 U/L (10-40); AST (SGOT) 24 U/L (10-42); BILIRUBIN,TOTAL 0.4 mg/dL (0.2-2.0); BLOOD UREA NITROGEN 16 mg/dL (9-23); BUN/CREATININE RATIO 13.33; CARBON DIOXIDE 29 mmol/L (22-31); CHLORIDE 104 mmol/L (100-111); CREATININE SERUM 1.2 mg/dL (0.6-1.4); GLOM FILT RATE Estimated 43.6 mL/min (>60); GLUCOSE FASTING 94 mg/dL (70-110); POTASSIUM 3.8 mmol/L (3.5-5.1); PROTEIN TOTAL SERUM 7.2 g/dL (6.0-8.3); SODIUM 140 mmol/L (135-145)
[2017-03-28 11:15] LABS: BILIRUBIN, DIRECT <0.1 mg/dL (0.0-0.2); BILIRUBIN,INDIRECT 0.3 mg/dL (0.0-0.9)
[2017-03-28 11:17] LABS: PROTHROMBIN TIME (PATIENT) 20.7 SECONDS (10.0-11.7)
[2017-03-28 12:53] LABS: POC - CKMB 1.4 ng/mL (0.0-7.9); POC - TROPONIN <0.05 ng/mL (<=0.05)
[2017-03-28 16:46] LABS: CHOLESTEROL 188 mg/dL (0-200); HDL CHOLESTEROL 58 mg/dL (35-95); LDL CHOLESTEROL 112 mg/dL (-130); LDL/HDL RATIO 2 RATIO (0-4); TRIGLYCERIDES 89 mg/dL (10-160)
[2017-03-28 17:16] LABS: POC - CREATININE 1.05 mg/dL (0.44-1.03)
[2017-03-28 19:44] LABS: CK TOTAL 53 IU/L (26-140)
[2017-03-29 02:02] LABS: %MB 4.9 % (0.0-4.0); MB 3.6 ng/ml
[2017-03-29 07:51] LABS: ALBUMIN SERUM 3.8 g/dL (3.5-5.0); BILIRUBIN,TOTAL 0.9 mg/dL (0.2-2.0); BUN/CREATININE RATIO 15.45; CALCIUM SERUM 8.8 mg/dL (8.4-10.2); CREATININE SERUM 1.1 mg/dL (0.6-1.4); GLOM FILT RATE Estimated 48.4 mL/min (>60); POTASSIUM 4.1 mmol/L (3.5-5.1); PROTEIN TOTAL SERUM 6.7 g/dL (6.0-8.3)
[2017-03-29 08:44] LABS: PROTHROMBIN TIME (PATIENT) 21.4 SECONDS (10.0-11.7)
[2017-03-29 15:18] LABS: HEMATOCRIT 39.9 % (35.0-45.0); HEMOGLOBIN 12.8 gm/dL (12.0-16.0); MEAN CELL VOLUME 92.4 FL (83-96); MEAN CORPUSCULAR HEMOGLOBIN 29.6 PG (28-34); MEAN CORPUSCULAR HGB CONC 32.1 g/dL (30-36); MEAN PLATELET VOLUME 8.9 FL (6.5-11.5); RED BLOOD COUNT 4.32 X10e (3.90-5.30); WHITE BLOOD COUNT 6.8 X10e3 (4.0-10.5)
[2017-03-29] MEDS ORDERED: LOVENOX40 MG/0.4 SUBQ (17:19)
[2017-03-29] MEDS ORDERED: LIPITOR40 MG PO (17:20)
== END 2017-03-29 17:00 | disposition home or self-care (01) ==
LOC: CED 09:18 → CEDOF 13:00 → CED 14:55 → CEDOF 14:55 → C5C 18:28 → C3A PCU 20:22
PROVIDERS: Emergency Medicine; Family Medicine; Psychiatry & Neurology Neurology
DX: G45.3 Amaurosis fugax (principal); D68.9 Coagulation defect, unspecified; R79.1 Abnormal coagulation profile; Z95.2 Presence of prosthetic heart valve; Z79.01 Long term (current) use of anticoagulants; I51.7 Cardiomegaly; I65.23 Occlusion and stenosis of bilateral carotid arteries; G93.89 Other specified disorders of brain; I37.1 Nonrheumatic pulmonary valve insufficiency; I36.1 Nonrheumatic tricuspid (valve) insufficiency; M50.30 Other cervical disc degeneration, unspecified cervical region; I48.91 Unspecified atrial fibrillation; I49.1 Atrial premature depolarization; J44.9 Chronic obstructive pulmonary disease, unspecified; I27.2 Other secondary pulmonary hypertension; I10 Essential (primary) hypertension; E78.5 Hyperlipidemia, unspecified; E03.9 Hypothyroidism, unspecified; I71.4 Abdominal aortic aneurysm, without rupture; F41.9 Anxiety disorder, unspecified; R63.6 Underweight; E46 Unspecified protein-calorie malnutrition; F17.210 Nicotine dependence, cigarettes, uncomplicated; Z79.82 Long term (current) use of aspirin; Z79.899 Other long term (current) drug therapy; Z85.51 Personal history of malignant neoplasm of bladder; Z82.49 Family history of ischemic heart disease and other diseases of the circulatory system; Z90.710 Acquired absence of both cervix and uterus; Z88.7 Allergy status to serum and vaccine; Z88.0 Allergy status to penicillin; Z88.2 Allergy status to sulfonamides; Z91.040 Latex allergy status
CPT/HCPCS: 36415; 70450; 70496; 70498; 70551; 80048; 80053; 80061; 80076; 82550; 82553; 82565; 82947; 83036; 84443; 84484; 85025; 85027; 85610; 85730; 86140; 93005; 93306; 93880; 96360; 96372; 97161; 99285; G0378; G8978-GP; G8979-GP; G8980-GP; J1650; Q9967

== ENCOUNTER 2017-05-22 10:51 | Emergency (ER) | payer MEDICARE ==
--- NOTE | ~2017-05-22 | EKG ---
PATIENT: TAD SINGER UNIT #: [id number] Ventricular Rate: 69 BPM Atrial Rate: 69 BPM P-R Interval: 172 ms QRS Duration: 86 ms Q-T Interval: 434 ms QTC Calculation(Bezet): 465 ms P Vincent: 89 degrees Calculated R Vincent: 54 degrees Calculated T Vincent: 54 degrees Diagnosis Line: Sinus rhythm with marked sinus arrhythmia Diagnosis Line: Otherwise normal ECG Diagnosis Line: When compared with ECG of 28-MAR-2017 10:00, Diagnosis Line: No significant change was found Diagnosis Line: Confirmed by KAVITA MENA MD ([id number]) on 05/24/2017 Diagnosis Line: 7:32:57 PM INTERPRETING MD: RAJESH JOHNSON
--- NOTE | ~2017-05-22 | CR72 ---
[facility]. [facility] A Service of [facility] & [facility] RADIOLOGY TEXT RESULTS PATIENT: TAD SINGER LOCATION: SED : 39 UNIT #: [id number] AGE: [address]: Davin Singer MD SEX: F ORDER DR: [id number] [place] [id number] MR#: [id number] Acc #: [id number] NAME: TAD SINGER : 1940 SEX: F STUDY DATE/TIME: 05/22/2017 11:50 UNIT: SED ROOM: STUDY DESCRIPTION: CR Chest Single View Portable Attending Physician: Davin Singer M.D. Ordering Physician: Davin Singer M.D. Primary Care Physician: Mathew Aguilar M.D. MEDICAL IMAGING REPORT This report is preliminary unless electronic signature is present. EXAM AP radiograph of the chest, 05/22/17. HISTORY Short of air and cough. Bladder cancer, hypertension. Short of air, weak, and cough for 2 days. FINDINGS AP radiograph of the chest is presented. Comparison 01/31/17. Status post median sternotomy and cardiac valve replacement. Stable mild cardiac enlargement. Stable moderate elevation of the left hemidiaphragm, cause unknown. The left lung shows atelectasis at the lung base adjacent to the elevated hemidiaphragm. There is hyperinflation of the right lung. This may in part reflect underlying chronic airway disease. It may in part be compensatory in nature given reduced volume of the left lung. Similar appearance on prior examination. There is no indication of pneumonia or pulmonary edema. No pleural effusion or pneumothorax. No suspicious nodule. Visualized upper abdomen shows no acute abnormality. Dictated by... Johnnie George M.D. THIS IS AN ELECTRONICALLY VERIFIED REPORT Johnnie George M.D. at 05/23/2017 4:57 PM Janee TD: 05/23/2017 06:55 JOB #: [id number] MEDICAL IMAGING REPORT Page 1 of 1
[~2017-05-22 10:51] MED LIST changes: +ALPRAZOLAM ER1 MG PO; +AMIODARONE HCL200 MG PO; +ASPIRIN81 M2 PO; +KCL PO; +LEVOTHYROXINE25 MC1 PO; +LIPITOR40 MG PO; +LOVENOX40 MG/0.4 SUBQ; +WARFARIN SODIUM3 M1 PO
[2017-05-22 11:28] LABS: BASOPHIL# 0.1 X10e3 (0-0.3); BASOPHIL% 1.1 % (0-2.5); EOSINOPHIL# 0.2 X10e3 (0-0.7); EOSINOPHIL% 2.6 % (0.0-7.0); HEMATOCRIT 41.1 % (35.0-45.0); HEMOGLOBIN 13.6 gm/dL (12.0-16.0); LYMPHOCYTE# 0.6 X10e3 (1.0-3.5); MEAN CELL VOLUME 92.3 FL (83-96); MEAN CORPUSCULAR HEMOGLOBIN 30.4 PG (28-34); MEAN PLATELET VOLUME 9.4 FL (6.5-11.5); MONOCYTE# 0.7 X10e3 (0-1.0); MONOCYTE% 11.5 % (3.0-12.0); NEUTROPHIL# 4.4 X10e3 (1.5-7.1); NEUTROPHIL% 74.8 % (40-75); PLATELET COUNT 418 X10e3 (140-420); RED BLOOD COUNT 4.46 X10e (3.90-5.30); WHITE BLOOD COUNT 5.9 X10e3 (4.0-10.5)
[2017-05-22 11:29] LABS: DIFF IND NO
[2017-05-22 11:35] LABS: POC - CKMB 1.8 ng/mL (0.0-7.9)
[2017-05-22 11:36] LABS: POC - MYOGLOBIN 70.6 ng/mL (0.0-169.0); POC - TROPONIN <0.05 ng/mL (<=0.05)
[2017-05-22 11:39] LABS: INR 2.1; PROTHROMBIN TIME (PATIENT) 23.8 SECONDS (9.5-12.4)
[2017-05-22 11:46] LABS: PARTIAL THROMBOPLASTIN TIME 36.9 SECONDS (25.6-38.1)
[2017-05-22 11:50] LABS: ALBUMIN SERUM 4.5 g/dL (3.5-5.0); ALKALINE PHOSPHATASE 73 U/L (32-92); ALT (SGPT) 13 U/L (10-40); AST (SGOT) 24 U/L (10-42); BILIRUBIN, DIRECT <0.1 mg/dL (0.0-0.2); BILIRUBIN,INDIRECT 0.3 mg/dL (0.0-0.9); BILIRUBIN,TOTAL 0.4 mg/dL (0.2-2.0); BLOOD UREA NITROGEN 17 mg/dL (9-23); BUN/CREATININE RATIO 15.45; CALCIUM SERUM 8.9 mg/dL (8.4-10.2); CARBON DIOXIDE 27 mmol/L (22-31); CHLORIDE 102 mmol/L (100-111); CREATININE SERUM 1.1 mg/dL (0.6-1.4); GLOM FILT RATE Estimated 48.4 mL/min (>60); GLUCOSE FASTING 90 mg/dL (70-110); POTASSIUM 4.5 mmol/L (3.5-5.1); PROTEIN TOTAL SERUM 8.1 g/dL (6.0-8.3); SODIUM 138 mmol/L (135-145)
== END 2017-05-22 15:00 | disposition home or self-care (01) ==
LOC: SED 10:51
PROVIDERS: Emergency Medicine
DX: J44.1 Chronic obstructive pulmonary disease with (acute) exacerbation (principal); J20.9 Acute bronchitis, unspecified; J44.0 Chronic obstructive pulmonary disease with (acute) lower respiratory infection; I48.91 Unspecified atrial fibrillation; I10 Essential (primary) hypertension; K21.9 Gastro-esophageal reflux disease without esophagitis; F17.210 Nicotine dependence, cigarettes, uncomplicated; Z86.73 Personal history of transient ischemic attack (TIA), and cerebral infarction without residual deficits; Z88.0 Allergy status to penicillin; Z88.2 Allergy status to sulfonamides; Z88.5 Allergy status to narcotic agent; Z91.040 Latex allergy status; Z88.8 Allergy status to other drugs, medicaments and biological substances; Z79.01 Long term (current) use of anticoagulants; Z79.899 Other long term (current) drug therapy; Z79.82 Long term (current) use of aspirin
CPT/HCPCS: 36415; 71010; 80048; 80076; 82553; 83874; 83880; 84484; 85025; 85610; 85730; 87040; 93005; 94640; 96374; 99285; J2930